=== PATIENT | female | born 1955 | race Two or more races ===

== ENCOUNTER 2017-07-07 12:40 | Emergency (ER) | payer OTHER ==
--- NOTE | 2017-07-07 12:56 | ER Document Report ---
ED General - General Stated Complaint: WEAKNESS Time Seen by Provider: 07/07/17 12:54 Mode of Arrival: Medic Information source: Patient - and - HPI Notes: 62-year-old female diverticulitis presents today with complaints of dizziness and weakness after she finished a private training session at the gym where they were down her for 45 minutes, states a few minutes after she left the gym, she started to feel sudden onset of dizziness and weakness. Stated she pulled over to the side of the road and called EMS. Patient states she is on her fourth training session. She focuses on core, states she has been hospitalized 5 times for dehydration and weakness from not eating enough food when she has been outside in the hot sun in [place]. Patient states she has not increased her she started working out. Did not eat anything after she finished her workout session today. States she had this morning for breakfast. adamantly states that patient does not eat enough food. Denies any trauma or falling. denies any history of hypoglycemia, seizures or TIA. Patient does not smoke. Patient states that been monitoring her thyroid as she is concerned is becoming more hyperthyroid it, unsure if this is with patient denies having any symptoms denies fevers, chills, chest pain,palpitations, shortness of breath, dyspnea, nausea, vomiting, diarrhea, abdominal pain, hematuria,blurred vision, double vision, loss of vision, speech changes, syncope, headaches, wheezing, ST , URI, neck pain, weakness, bowel or bladder dysfunction, saddle anesthesia, numbness or tingling in bilateral upper or lower extremities equally, muscle paralysis, in bilateral upper or lower extremities equally or rash. Denies IV drug use. Past Medical History - General Information source: Patient - Social History Smoking Status: Never Smoker Family History: Reviewed & Not Pertinent Review of Systems - Review of Systems Constitutional: See HPI EENT: No symptoms reported Cardiovascular: No symptoms reported Respiratory: No symptoms reported Gastrointestinal: No symptoms reported Genitourinary: No symptoms reported Female Genitourinary: No symptoms reported Musculoskeletal: No symptoms reported Skin: No symptoms reported Hematologic/Lymphatic: No symptoms reported Neurological/Psychological: See HPI Physical Exam - Vital signs Vitals: Resp 15 07/07/17 12:57 - Notes Notes: PHYSICAL EXAMINATION: GENERAL: Well-appearing, well-nourished and in no acute distress. HEAD: Atraumatic, normocephalic. EYES: Pupils equal round and reactive to light, extraocular movements intact, conjunctiva are normal. ENT: Nares patent, oropharynx clear without exudates. Moist mucous membranes. NECK: Normal range of motion, supple without lymphadenopathy LUNGS: Breath sounds clear to auscultation bilaterally and equal. No wheezes rales or rhonchi. HEART: Regular rate and rhythm without murmurs ABDOMEN: Soft, nontender, nondistended abdomen. No guarding, no rebound. No masses appreciated. Female : deferred Musculoskeletal: Normal range of motion, no pitting or edema. No cyanosis. NEUROLOGICAL: Cranial nerves grossly intact. Normal speech, normal gait. Normal sensory, motor exams PSYCH: Normal mood, normal affect. SKIN: Warm, Dry, normal turgor, no rashes or lesions noted. Course - Re-evaluation Re-evalutation: 62-year-old female who is afebrile, vitals stable and in no distress here for evaluation by EMS of what appears to be exercise-induced weakness and fatigue due to not eating or drinking enough after she had a private core training session at the gym. By the time patient came to the ER she said she felt back to normal, was asymptomatic. When reviewing patient, her and her states that she has a habit of not eating enough food, states she has been hospitalized 5 times down in [place] over the course of several years due to dehydration. Patient patient given a liter of fluids, states she feels back to baseline CBC negative for leukocytosis or anemia. CMP negative for renal or hepatic dysfunction, electrolytes. Urinalysis negative for UTI hematuria or proteinuria. EKG negative for STEMI. TSH within normal range but moving towards hypothyroidism. First set of cardiac enzymes negative of <0.012, second set of cardiac enzymes showed slight elevation at 0.015, she is still normal 4 hours after initial set of cardiac enzymes patient remains asymptomatic, no shortness of breath or chest pain. However due to slight elevation in discussed with patient, during the enzyme in the blood after a course of time, troponin. Which was negative at <0.012 7 4 hours after second set of troponin. Pt does dnot appear to be concerning for any acute life-threatening pathology. Vitals are within normal limits at triage and at time of discharge. Physical examination is unremarkable. Patient has tolerated oral intake without difficulty. Patient was not noted to be in distress at any point during their ER visit. At this time, based on the reassuring evaluation, I do not suspect an acute IA, pulmonary embolus, aortic dissection, acute intra- abdominal pathology, stroke, or sepsis.Will discharge with return precautions and follow-up recommendations. Discussed with patient to increase oral hydration and caloric intake while dissipating in vigorous exercise. discussed the importance of increasing protein intake as well as caloric intake , post workout meals and pre-workout meals. The importance of staying hydrated. At this time will discharge with return precautions and follow-up recommendations. Verbal discharge instructions given a the bedside and opportunity for questions given. Medication warnings reviewed. Patient is in agreement with this plan and has verbalized understanding of return precautions and the need for primary care follow-up in the next 24-72 hours. - Vital Signs Vital signs: Temp Pulse Resp BP Pulse Ox 97.9 F 20 133/72 H 100 07/07/17 16:00 07/07/17 20:27 07/07/17 20:27 07/07/17 15:01 - Laboratory Result Diagrams: 07/07/17 13:03 07/07/17 13:03 Laboratory results interpreted by me: 07/07/17 13:03 Sodium 136.4 L - EKG Interpretation by [place] EKG shows normal: Sinus rhythm Rate: Normal Rhythm: NSR - Heart rate 73 bpm. No STEMI. Nonspecific ST segment elevations. Discharge - Discharge Clinical Impression: dizziness, resolved, weakness, resolved Clinical Impression: (Ruled Out): Dizziness Condition: Good Disposition: HOME, SELF-CARE Instructions: Dizziness ([facility]) Additional Instructions: Dizziness Under normal circumstances, your sense of balance is controlled by a number of signals that your brain receives from several locations: Eyes. No matter what your position, visual signals help you determine where your body is in space and how it's moving. Sensory nerves. These are in your skin, muscles and joints. Sensory nerves send messages to your brain about body movements and positions. Inner ear. The organ of balance in your inner ear is the vestibular labyrinth. It includes loop-shaped structures (semicircular canals) that contain fluid and fine, hair-like sensors that monitor the rotation of your head. Near the semicircular canals are the utricle and saccule, which contain tiny particles called otoconia ([id number]). These particles are attached to sensors that help detect gravity and gyfc-[id number]-mdylo motion. Good balance depends on at least two of these three sensory systems working well. For instance, closing your eyes while washing your hair in the shower doesn't mean you'll lose your balance. Signals from your inner ear and sensory nerves help keep you upright. However, if your central nervous system can't process signals from all of these locations, if the messages are contradictory, or if the sensory systems aren't functioning properly, you may experience loss of balance. Dizziness may have a number of potential causes. These may include: Weakness You should get plenty of rest. Unless the doctor tells you otherwise, it's usually best to add short periods of regular mild exercise. Eat a nutritious diet with multiple meals. If symptoms continue, additional medical evaluation will be necessary. Be sure to follow up as instructed. If you become very dizzy, nauseated, or feel like you're going to faint, lie down right away. Wait until the symptoms have passed before you get up again. Stand up slowly. Call the doctor or return if you develop chest pain, abdominal pain, severe headache, irregular heartbeat or very fast pulse, confusion, vision problems, fever, muscular pain, or any other new symptom. Follow-up with your primary care provider within 24 hours. Cardiac enzymes advised to increase caloric intake due to working out with a life trainer that you do not do not become calorie deficient. Increase oral hydration to prevent dehydration. Drink Gatorade or Pedialyte to help any hyponatremia. Return immediately for any new or worsening symptoms. Please be sure to drink plenty of fluids while out in the heat. You can purchase packets of electrolyte replacement solutions such as Pedialyte or propel that you can add to plain water. This will help to make sure that you are getting adequate electrolytes in addition to fluids while working outside. Please return to the emergency department if you pass out, developed diffuse muscle cramping, have persistent vomiting, or have any other symptoms that are worrisome to you. Follow up with primary care provider, call tomorrow to make followup appointment. Forms: Return to Work Referrals: REYNALDO TEJADA NP [Primary Care Provider] - Follow up tomorrow
[2017-07-07] MEDS ORDERED: NORMAL SALINE 500 ML IV PRN (13:12)
[2017-07-07 13:20] LABS: ABSOLUTE BASOPHILS # (AUTO) 0.1 10^3/uL (0.0-0.2); ABSOLUTE EOSINOPHILS # (AUTO) 0.1 10^3/uL (0.0-0.6); ABSOLUTE LYMPHOCYTES (AUTO) 2.1 10^3/uL (0.5-4.7); ABSOLUTE MONOCYTES (AUTO) 0.5 10^3/uL (0.1-1.4); ABSOLUTE NEUT (AUTO) 4.1 10^3/uL (1.7-8.2); BASOPHILS % (AUTO) 0.7 % (0-2); EOSINOPHILS % (AUTO) 1.6 % (0-6); HEMATOCRIT 37.1 % (36.0-47.0); HEMOGLOBIN 12.7 g/dL (12.0-15.5); LYMPHOCYTES % (AUTO) 30.7 % (13-45); MEAN CORPUSCULAR HEMOGLOBIN 31.1 pg (27.0-33.4); MEAN CORPUSCULAR HGB CONC 34.4 g/dL (32.0-36.0); MEAN CORPUSCULAR VOLUME 91 fl (80-97); MONOCYTES % (AUTO) 7.7 % (3-13); PLATELET COUNT 270 10^3/uL (150-450); RED CELL DISTRIBUTION WIDTH 12.8 % (11.5-14.0); SEGMENTED NEUTROPHILS % (AUTO) 59.3 % (42-78); TOTAL CELLS COUNTED % (AUTO) 100 %
[2017-07-07 13:25] LABS: APPEARANCE,URINE CLEAR; BILIRUBIN,URINE NEGATIVE (NEGATIVE); COLOR,URINE STRAW; GLUCOSE, URINE NEGATIVE (NEGATIVE); KETONES,URINE NEGATIVE (NEGATIVE); LEUKOCYTE ESTERASE,URINE NEGATIVE (NEGATIVE); NITRITE,URINE NEGATIVE (NEGATIVE); PROTEIN,URINE NEGATIVE (NEGATIVE); URINE SPECIFIC GRAVITY 1.004; UROBILINOGEN,URINE NEGATIVE mg/dL (<2.0)
[2017-07-07 13:46] LABS: ALANINE AMINOTRANSFERASE 34 U/L (9-52); ALBUMIN 4.3 g/dL (3.5-5.0); ALKALINE PHOSPHATASE 83 U/L (38-126); ANION GAP 9 (5-19); ASPARTATE AMINO TRANSFERASE 27 U/L (14-36); BILIRUBIN,DIRECT 0.2 mg/dL (0.0-0.4); BILIRUBIN,TOTAL 0.2 mg/dL (0.2-1.3); BLOOD UREA NITROGEN 13 mg/dL (7-20); CALCIUM 9.8 mg/dL (8.4-10.2); CARBON DIOXIDE 28 mmol/L (22-30); CHLORIDE 99 mmol/L (98-107); CREATINE KINASE 34 U/L (30-135); GLUCOSE 95 mg/dL (75-110); POTASSIUM 4.2 mmol/L (3.6-5.0); SODIUM 136.4 mmol/L (137-145)
[2017-07-07 13:56] LABS: CREATINE KINASE MB 0.32 ng/mL (<4.55); TROPONIN I < 0.012 ng/mL
--- NOTE | 2017-07-07 15:01 | RADIOLOGY REPORT (SQ) ---
EXAM DESCRIPTION: CHEST SINGLE VIEW COMPLETED DATE/TIME: 07/07/2017 2:35 pm REASON FOR STUDY: weakness/dizziness COMPARISON: None. EXAM PARAMETERS: NUMBER OF VIEWS: One view. TECHNIQUE: Single frontal radiographic view of the chest acquired. RADIATION DOSE: NA LIMITATIONS: None. FINDINGS: LUNGS AND PLEURA: No opacities, masses or pneumothorax. No pleural effusion. MEDIASTINUM AND HILAR STRUCTURES: No masses. Contour normal. HEART AND VASCULAR STRUCTURES: Heart normal in size. Normal vasculature. BONES: No acute findings. HARDWARE: None in the chest. OTHER: No other significant finding. IMPRESSION: NO ACUTE RADIOGRAPHIC FINDING IN THE CHEST. TECHNICAL DOCUMENTATION: JOB ID: [id number] [employer]- All Rights Reserved Reading location - IP/workstation name: [email or web address]
[2017-07-07 17:26] LABS: FREE T4 (FREE THYROXINE) 1.11 ng/dL (0.78-2.19)
[2017-07-07 17:40] LABS: THYROID STIMULATING HORMONE 4.29 uIU/mL (0.47-4.68)
[2017-07-07 20:32] VITALS: BP 133/72
--- NOTE | 2017-07-07 22:37 | EKG REPORT ---
SEVERITY:- NORMAL ECG - SINUS RHYTHM : Confirmed by: Jayjay Thompson 07-Jul-2017 22:36:24
== END 2017-07-07 22:05 | disposition home or self-care (01) ==
LOC: ER 12:40
DX: R53.1 Weakness (principal); R42 Dizziness and giddiness; R74.8 Abnormal levels of other serum enzymes
CPT/HCPCS: 93005; 99285; 36415; 84439; 82553; 82550; 83735; 84443; 85025; 80053; 81001; 84484; 71045; 93010; J7040

== ENCOUNTER 2019-01-28 18:16 | Emergency (ER) | payer OTHER ==
--- NOTE | 2019-01-28 18:36 | ER Document Report ---
ED Medical Screen (RME) - General Chief Complaint: Dizziness Stated Complaint: DIZZINESS,HEADACHE,BLOOD PRESSURE Time Seen by Provider: 01/28/19 18:31 Primary Care Provider: REYNALDO TEJADA NP [Primary Care Provider] - Follow up as needed Mode of Arrival: Ambulatory Information source: Patient Notes: 63-year-old female presented to ED for complaint of lightheadedness dizziness and her blood pressure is elevated. She states she is always had a very low blood pressure and now her blood pressure is high for her. She denies any nausea or vomiting. She denies any falling. She has a history of high cholesterol, IBS complete hysterectomy, removal of a meningioma. She states she does not drink smoke or use any illicit drugs. She does live with her . She states she is retired right now. I have greeted and performed a rapid initial assessment of this patient. A comprehensive ED assessment and evaluation of the patient, analysis of test results and completion of medical decision making process will be conducted by an additional ED providers. Past Medical History Renal/ Medical History: Denies: Hx Peritoneal Dialysis Physical Exam - Vital signs Vitals: Temp Pulse Resp BP Pulse Ox 97.8 F 69 16 162/61 H 100 01/28/19 18:23 01/28/19 18:23 01/28/19 18:23 01/28/19 18:23 01/28/19 18:23 Course - Vital Signs Vital signs: Temp Pulse Resp BP Pulse Ox 97.8 F 69 16 162/61 H 100 01/28/19 18:23 01/28/19 18:23 01/28/19 18:23 01/28/19 18:23 01/28/19 18:23 Doctor's Discharge - Discharge Referrals: REYNALDO TEJADA NP [Primary Care Provider] - Follow up as needed
[2019-01-28 19:16] LABS: ABSOLUTE EOSINOPHILS # (AUTO) 0.2 10^3/uL (0.0-0.6); ABSOLUTE MONOCYTES (AUTO) 0.6 10^3/uL (0.1-1.4); ABSOLUTE NEUT (AUTO) 3.4 10^3/uL (1.7-8.2); BASOPHILS % (AUTO) 0.5 % (0-2); EOSINOPHILS % (AUTO) 2.6 % (0-6); HEMOGLOBIN 14.5 g/dL (12.0-15.5); LYMPHOCYTES % (AUTO) 32.2 % (13-45); MEAN CORPUSCULAR HEMOGLOBIN 31.7 pg (27.0-33.4); MEAN CORPUSCULAR HGB CONC 34.6 g/dL (32.0-36.0); MEAN CORPUSCULAR VOLUME 91 fl (80-97); PLATELET COUNT 296 10^3/uL (150-450); RED BLOOD COUNT 4.59 10^6/uL (3.72-5.28); RED CELL DISTRIBUTION WIDTH 12.9 % (11.5-14.0); SEGMENTED NEUTROPHILS % (AUTO) 55.7 % (42-78); TOTAL CELLS COUNTED % (AUTO) 100 %; WHITE BLOOD COUNT 6.1 10^3/uL (4.0-10.5)
[2019-01-28 19:21] LABS: APPEARANCE,URINE CLEAR; BILIRUBIN,URINE NEGATIVE (NEGATIVE); COLOR,URINE COLORLESS; GLUCOSE, URINE NEGATIVE (NEGATIVE); KETONES,URINE NEGATIVE (NEGATIVE); PROTEIN,URINE NEGATIVE (NEGATIVE); URINE SPECIFIC GRAVITY 1.002; UROBILINOGEN,URINE NEGATIVE mg/dL (<2.0)
[2019-01-28 19:31] LABS: ALBUMIN 4.9 g/dL (3.5-5.0); ALKALINE PHOSPHATASE 74 U/L (38-126); ANION GAP 9 (5-19); ASPARTATE AMINO TRANSFERASE 30 U/L (14-36); BILIRUBIN,TOTAL 0.3 mg/dL (0.2-1.3); BLOOD UREA NITROGEN 14 mg/dL (7-20); CARBON DIOXIDE 30 mmol/L (22-30); CHLORIDE 101 mmol/L (98-107); GLUCOSE 101 mg/dL (75-110); POTASSIUM 4.2 mmol/L (3.6-5.0); TOTAL PROTEIN 8.3 g/dL (6.3-8.2)
--- NOTE | 2019-01-28 22:14 | ER Document Report ---
ED General - General Chief Complaint: Dizziness Stated Complaint: DIZZINESS,HEADACHE,BLOOD PRESSURE Time Seen by Provider: 01/28/19 18:31 Primary Care Provider: REYNALDO TEJADA NP [Primary Care Provider] - Follow up in 3-5 days Mode of Arrival: Ambulatory Notes: Patient is a 63-year-old female that comes to the emergency department for chief complaint of frequent lightheadedness and dizziness today, she also states that she has been getting frequent headaches over the past week. Patient denies focal numbness or weakness, visual changes, chest pain, shortness of breath. She states she has had frequent palpitations however. Past medical history of hyperlipidemia, IBS, hysterectomy, meningioma with removal in 2010. She denies smoking, alcohol, recreational drugs. She reports minimal caffeine. She states she checked her blood pressure earlier and it was higher than usual. - Related Data Allergies/Adverse Reactions: phenytoin [From Dilantin] Allergy (Verified 01/28/19 18:50) Sulfa (Sulfonamide Antibiotics) Allergy (Verified 01/28/19 18:50) Past Medical History - General Information source: Patient - Social History Smoking Status: Never Smoker Frequency of alcohol use: None Drug Abuse: None Family History: Reviewed & Not Pertinent Patient has suicidal ideation: No Patient has homicidal ideation: No Renal/ Medical History: Denies: Hx Peritoneal Dialysis Review of Systems - Review of Systems Constitutional: See HPI EENT: No symptoms reported Cardiovascular: See HPI Respiratory: No symptoms reported Gastrointestinal: No symptoms reported Genitourinary: No symptoms reported Female Genitourinary: No symptoms reported Musculoskeletal: No symptoms reported Skin: No symptoms reported Hematologic/Lymphatic: No symptoms reported Neurological/Psychological: See HPI Physical Exam - Vital signs Vitals: Temp Pulse Resp BP Pulse Ox 97.8 F 69 16 162/61 H 100 01/28/19 18:23 01/28/19 18:23 01/28/19 18:23 01/28/19 18:23 01/28/19 18:23 - Notes Notes: GENERAL: Alert, interacts well. No acute distress. HEAD: Normocephalic, atraumatic. EYES: Pupils equal, round, and reactive to light. Extraocular movements intact. ENT: Oral mucosa moist, tongue midline. Oropharynx unremarkable. Airway patent. Nares patent, no nasal septal hematoma, TM's intact. NECK: Full range of motion. Supple. Trachea midline. LUNGS: Clear to auscultation bilaterally, no wheezes, rales, or rhonchi. No respiratory distress. HEART: Regular rate and rhythm. No murmur ABDOMEN: Soft, non-tender. Non-distended. Bowel sounds present in all 4 quadrant s. GENITOURINARY: Deferred EXTREMITIES: Moves all 4 extremities spontaneously. No edema, normal radial and dorsalis pedis pulses bilaterally. No cyanosis. BACK: no cervical, thoracic, lumbar midline tenderness. No saddle anesthesia, normal distal neurovascular exam. Moves all extremities in full range of motion. NEUROLOGICAL: Alert and oriented x3. Normal speech. Cranial nerves II through XII grossly intact. PSYCH: Normal affect, normal mood. SKIN: Warm, dry, normal turgor. No rashes or lesions noted. Course - Re-evaluation Re-evalutation: Patient with intermittent headaches, intermittent dizziness symptoms, she does have a normal neurological exam. Patient is anxious because of her history of brain cancer, requesting CT of the head. Because of her developing symptoms and history of cancer CAT scan of the head was performed but this does not show any acute findings. She does not have a neurological deficits. She does not have thunderclap headache or any signs of distress, on reevaluation she does not have a headache. Low suspicion of subarachnoid hemorrhage or acute intracranial etiology. CBC unremarkable, chemistry unremarkable, troponins negative. Monitoring while here unremarkable. EKG unremarkable. Urinalysis unremarkable. TSH is significantly elevated. Discussed all details with patient and family. They are happy with her results, they state they will follow-up closely with her primary for her thyroid panel, discussed return precautions, they state understanding and agreement. Stable at time of discharge. - Vital Signs Vital signs: Temp Pulse Resp BP Pulse Ox 97.7 F 62 16 136/63 H 98 01/29/19 01:10 01/29/19 01:10 01/29/19 01:10 01/29/19 01:10 01/29/19 01:10 - Laboratory Result Diagrams: 01/28/19 19:01 01/28/19 19:01 Laboratory results interpreted by me: 01/28/19 01/28/19 01/28/19 19:01 19:01 19:01 Total Protein 8.3 H TSH 7.49 H Leukocyte Esterase Rfl TRACE H - EKG Interpretation by Me Additional EKG results interpreted by me: EKG shows sinus rhythm at a rate of 69, QTC of 412, normal axis, no T wave inversions or ST segment changes in consecutive leads. Machine reads as normal. Discharge - Discharge Clinical Impression: Lightheadedness, Palpitations Fatigue Qualifiers: Fatigue type: unspecified Qualified Code(s): R53.83 - Other fatigue Condition: Stable Disposition: HOME, SELF-CARE Additional Instructions: Your monitoring and work-up today are reassuring except your thyroid screening is abnormal. Please call and follow-up closely with your primary care provider for a thyroid panel to be performed and additional management. Return for any concerning symptoms including chest pain, passing out, difficulty breathing, or any other concerning or worsening symptoms. Referrals: REYNALDO TEJADA NP [Primary Care Provider] - Follow up in 3-5 days
--- NOTE | 2019-01-28 23:29 | RADIOLOGY REPORT (SQ) ---
CT HEAD WITHOUT IV CONTRAST EXAM DATE: 01/28/2019 10:13 PM [employer] HISTORY: Dizzy, frequent headaches, hx cancer. COMPARISON: None. TECHNIQUE: CT scan of the brain without IV contrast. This exam was performed according to our departmental dose-optimization program, which includes automated exposure control, adjustment of the mA and/or kV according to patient size and/or use of iterative reconstruction technique. FINDINGS: Prior left frontal craniotomy with chronic postoperative changes are noted, including a calcified extra-axial lesion measuring approximately 3 mm at the surgical site. No evidence of acute infarction, intracranial hemorrhage, or midline shift. No air-fluid levels are seen in the paranasal sinuses to suggest acute sinusitis. No depressed skull fracture. IMPRESSION: No acute intracranial findings.
[2019-01-29 01:11] VITALS: BP 136/63
--- NOTE | 2019-01-29 17:34 | EKG REPORT ---
SEVERITY:- NORMAL ECG - SINUS RHYTHM : Confirmed by: Cristi Irene MD 29-Jan-2019 17:34:12
== END 2019-01-29 01:20 | disposition home or self-care (01) ==
LOC: ER 18:16
DX: R42 Dizziness and giddiness (principal); R51 Headache; R00.2 Palpitations; R53.83 Other fatigue; R79.89 Other specified abnormal findings of blood chemistry; Z88.8 Allergy status to other drugs, medicaments and biological substances; Z88.2 Allergy status to sulfonamides
CPT/HCPCS: 36415; 70450; 80053; 81001; 83690; 83735; 84443; 84484; 85025; 87086; 93005; 93010; 99284